=== PATIENT | female | born 1950 | race Two or more races ===

== ENCOUNTER 2019-10-10 11:49 | Outpatient (CLI) | payer OTHER | END 2019-10-10 12:09 | disposition home or self-care (01) | LOC: NUCLEAR 11:49 | DX: C73 Malignant neoplasm of thyroid gland (principal); E89.0 Postprocedural hypothyroidism | CPT/HCPCS: 79005; A9517 ==

== ENCOUNTER 2019-10-15 12:26 | Outpatient (CLI) | payer OTHER | END 2019-10-15 15:20 | disposition home or self-care (01) | LOC: NUCLEAR 12:26 | DX: C73 Malignant neoplasm of thyroid gland (principal); E89.0 Postprocedural hypothyroidism ==

== ENCOUNTER 2020-10-01 08:13 | Outpatient (CLI) | payer OTHER | END 2020-10-01 08:14 | disposition home or self-care (01) | LOC: NUCLEAR 08:13 | PROVIDERS: ATTEND Internal Medicine Sports Medicine | DX: C73 Malignant neoplasm of thyroid gland (principal) | CPT/HCPCS: 78018; 78020; A9528 ==